=== PATIENT | male | born 1955 | race Two or more races ===

== ENCOUNTER 2024-07-19 02:54 | Emergency (ER) | payer OTHER ==
[~2024-07-19] VITALS: Ht 182.9 cm; Wt 90.9 kg
[2024-07-19 03:04] VITALS: BP 160/67; PULSE 62; RESP 16; TEMP 97.6; O2SAT 98
[2024-07-19] MEDS: SODIUM CHLORIDE 0.9% 1,000 ML IV ONE (03:40)
[2024-07-19 03:50] LABS: BASOPHILS % (AUTO) 1.3 % (0.0-2.0); EOSINOPHILS % (AUTO) 4.1 % (1.0-6.0); HEMATOCRIT 37.6 % (41-53); HEMOGLOBIN 12.4 g/dL (13.5-17.5); LYMPHOCYTES # (AUTO) 3.3 K/uL (1.0-4.8); LYMPHOCYTES % (AUTO) 42.4 % (22.0-44.0); MEAN CORPUSCULAR HEMOGLOBIN 30.2 pg (26.0-34.0); MEAN CORPUSCULAR HGB CONC 32.9 G/dL (31.0-37.0); MEAN CORPUSCULAR VOLUME 92 fL (80-100); MONOCYTES # (AUTO) 0.9 K/uL (0.1-1.0); MONOCYTES % (AUTO) 11.7 % (2.0-9.0); NEUTROPHILS # (AUTO) 3.2 K/uL (1.8-7.7); NEUTROPHILS % (AUTO) 40.5 % (40.0-70.0); PLATELET COUNT (AUTO) 282 K/uL (150-450); RED BLOOD CELL COUNT(AUTO) 4.09 MIL/uL (4.50-5.90); RED CELL DISTRIBUTION WIDTH 14.4 % (11.5-14.5); WHITE BLOOD COUNT (AUTO) 7.8 K/uL (4.5-11.0)
[2024-07-19 04:01] LABS: ALANINE AMINOTRANSFERASE 32 U/L (12-78); ALBUMIN 3.2 g/dL (3.4-5.0); ALKALINE PHOSPHATASE 103 U/L (46-116); ANION GAP 9 mmol/L (8-16); ASPARTATE AMINOTRANSFERASE 23 U/L (15-37); BILIRUBIN,TOTAL 0.3 mg/dL (0.1-1.0); CALCIUM, TOTAL 8.9 mg/dL (8.8-10.5); CARBON DIOXIDE 28 mmol/L (22-29); CHLORIDE 96 mmol/L (98-107); CREATININE 0.92 mg/dL (0.60-1.30); GLOMERULAR FILTR. RATE CALC > 60 mL/min (>60); POTASSIUM 4.5 mmol/L (3.5-5.1); SODIUM SERUM 133 mmol/L (136-145); TOTAL PROTEIN, SERUM 6.8 g/dL (6.4-8.2); TROPONIN I-HIGH SENSITIVITY 7 ng/L (<76); UREA NITROGEN, BLOOD 19 mg/dL (7-18)
[2024-07-19 04:10] LABS: GLUCOSE,RANDOM 453 mg/dL (70-110)
[2024-07-19 04:11] LABS: B-TYPE NATRIURETIC PEPTIDE 26 pg/mL (0-100)
[2024-07-19 04:24] LABS: ACETONE,BLOOD NEGATIVE (NEGATIVE)
[2024-07-19 04:31] LABS: ALCOHOL, BLOOD (SERUM) < 3 mg/dL (0-10)
[2024-07-19] MEDS: BACLOFEN 10 MG TABLET PO ONE (05:48)
[2024-07-19] MEDS: INSULIN GLARGINE,HUM.REC.ANLOG 100 UNITS/ML SQ ONE (05:50)
== END 2024-07-19 07:05 | disposition home or self-care (01) ==
LOC: EMS 02:54
DX: R25.2 Cramp and spasm (principal); E11.65 Type 2 diabetes mellitus with hyperglycemia; I10 Essential (primary) hypertension; D64.9 Anemia, unspecified; Z87.19 Personal history of other diseases of the digestive system
CPT/HCPCS: 99285; 96360; 71045; 80048; 80076; 82009; 83735; 83880; 84484; 85025; 36415; 82948; 93005; 96372; G0480; J1815; J7030